=== PATIENT | male | born 1955 | race Caucasian/White ===

== ENCOUNTER 2016-09-03 18:58 | Emergency (ER) | payer OTHER ==
[~2016-09-03] VITALS: Ht 175.3 cm; Wt 88.0 kg
[2016-09-03 19:04] VITALS: TEMP 36.5; Ht 175.3 cm; Wt 88.0 kg
[2016-09-03] MEDS ORDERED: SODIUM CHLORIDE 0.9% 1000ML 1,000 ML IV STA (19:08)
[2016-09-03] MEDS ORDERED: ONDANSETRON 8 MG/54 ML D5W IV STA (19:08)
[2016-09-03] MEDS ORDERED: KETOROLAC TROMETHAMINE 30 MG/ML VIAL IV STA (19:11)
[2016-09-03] MEDS: HYDROmorphone INJ 1 MG/ML SYR IV PRN ×2 (19:17→19:33)
[2016-09-03 19:30] LABS: BASO % 0.2 %; BASO ABS # 0.03 K/uL (0-0.2); COMPLETE YES; EOS % 0.8 %; HEMATOCRIT 42.3 % (42-52); IG% 0.3 %; LYMPH ABS # 1.98 K/uL (1.2-3.4); MEAN CELL VOLUME 91.4 fL (80-100); MEAN CORPUSCULAR HEMOGLOBIN 32.4 pg (25-34); MEAN CORPUSCULAR HGB CONC 35.5 g/dl (32-36); MEAN PLATELET VOLUME 10.8 fL (7.4-10.4); MONO % 8.9 %; NEUT % 74.8 %; PLATELET COUNT 251 K/uL (130-400); RED BLOOD COUNT 4.63 M/uL (4.7-6.1)
[2016-09-03 19:46] LABS: ALT/SGPT 32 U/L (12-78); AST/SGOT 19 U/L (15-37); BLOOD UREA NITROGEN 22 mg/dl (7-18); BUN/CREATININE RATIO 16.9 (10-20); CALCIUM 9.2 mg/dl (8.5-10.1); CARBON DIOXIDE 25 mmol/L (21-32); CHLORIDE 106 mmol/L (98-107); GLUCOSE 145 mg/dl (70-99); POTASSIUM 4.1 mmol/L (3.5-5.1); SODIUM 140 mmol/L (136-145)
[2016-09-03 19:49] LABS: ALKALINE PHOSPHATASE 48 U/L (45-117)
[2016-09-03 20:11] VITALS: O2SAT 99
--- NOTE | 2016-09-03 20:13 | DIAGNOSTIC IMAGING REPORT ---
CT OF THE ABDOMEN AND PELVIS WITHOUT CONTRAST, STONE PROTOCOL CLINICAL HISTORY: Flank pain and. Hematuria. COMPARISON STUDY: None. TECHNIQUE: Helical axial images of the abdomen and pelvis were obtained without IV or oral contrast according to renal stone protocol. FINDINGS: A 3 mm calculus projects over the right posterior aspect of the bladder. This is likely at the ureterovesical junction. There is mild right hydroureteronephrosis with moderate periureteral infiltration/fluid. No additional urinary calculi are identified. There are gallstones within the gallbladder. A small hiatal hernia is present. Unenhanced images of the liver, spleen, adrenal glands and pancreas are normal. There is a diverticulum of the third portion of the duodenum. There is no evidence for a bowel obstruction. The appendix is normal. There is a fat-containing umbilical hernia. No suspicious osseous lesions are present. There is no lymphadenopathy. IMPRESSION: 1. 3 mm calculus at the right ureterovesical junction with mild right hydroureteronephrosis and moderate right periureteral infiltration/fluid. 2. Cholelithiasis. 3. Small hiatal hernia. Electronically signed by: Clarence Juan M.D. 09/03/2016 8:11 PM Dictated Date/Time: 09/03/2016 8:06 PM
[2016-09-03 21:03] LABS: URINE APPEARANCE CLEAR (CLEAR); URINE BILIRUBIN NEG (NEG); URINE COLOR YELLOW; URINE NITRITE NEG (NEG); URINE PH 7.5 (4.5-7.5); URINE SPECIFIC GRAVITY 1.016 (1.000-1.030); UROBILINOGEN NEG (NEG)
[2016-09-03 21:12] LABS: MANUAL MICROSCOPIC REQUIRED? NO; REVIEW REQ? NO
[2016-09-03] MEDS ORDERED: ONDA4TAB10 SL (21:43)
[2016-09-03] MEDS ORDERED: OXYC1TAB3 PO (21:43)
[2016-09-03] MEDS ORDERED: ONDANSETRON HOME PACK 4MG OD TAB PO ONE (21:45)
[2016-09-03] MEDS ORDERED: OXYCODONE IR HOME PACK PO ONE (21:45)
[2016-09-03 22:04] VITALS: BP 158/78; PULSE 82; O2SAT 97
--- NOTE | 2016-09-04 01:34 | EMERGENCY ROOM VISIT NOTE ---
History Report prepared by Al: Terrence Vicente Under the Supervision of: Dr. Hubert Claudio M.D. First contact with patient: 19:07 Chief Complaint: FLANK PAIN Stated Complaint: BACK/SIDE/ABD PAIN History of Present Illness The patient is a 61 year old male who presents to the Emergency Room with complaints of severe and constant pain in the right flank that onset suddenly at 1700, two hours prior to arrival. He describes the pain as "sharp." The patient states that his pain is radiating into his right lower abdominal quadrant and right groin. The patient denies LOC, headache, fevers, chills, diaphoresis, visual changes, neck pain, chest pain, breathing difficulties, melena, hematochezia, numbness, weakness, lymphadenopathy, rash, or other complaints. Source of History: patient Onset: 2 hours [employer] Position: other (right flank) Symptom Intensity: severe Quality: sharp Timing: constant Associated Symptoms: + abdominal pain, + vomiting, No fevers Review of Systems See HPI for pertinent positives and negatives. A total of ten systems were reviewed and were otherwise negative. Past Medical & Surgical Surgical Problems: (1) H/O vasectomy Family History No pertinent history secondary to case. Social History Smoking Status: Never Smoker Drug Use: none Marital Status: Housing Status: lives with significant other Current/Historical Medications Scheduled Ondasetron Odt (Zofran Odt), 4 MG SL Q6H Scheduled PRN Oxycodone Ir (Roxicodone Ir), 1-2 TAB PO Q4H PRN for Pain Allergies Coded Allergies: BEE STING (Verified Allergy, Severe, hives, 09/03/16) Penicillins (Verified Allergy, Intermediate, hives, 09/03/16) Physical Exam Vital Signs Date Time Temp Pulse Resp B/P Pulse Ox O2 Delivery O2 Flow Rate FiO2 09/03/16 22:04 82 18 158/78 97 09/03/16 20:11 99 Nasal Cannula 2.0 09/03/16 20:10 83 Room Air 2.0 Nasal Cannula 09/03/16 19:51 91 18 179/97 95 Room Air 09/03/16 19:04 36.5 81 21 156/93 100 Room Air Physical Exam GENERAL: Awake, alert, uncomfortable appearing, in obvious stress, actively vomiting. HENT: Normocephalic, atraumatic. Oropharynx unremarkable. EYES: Normal conjunctiva. Sclera non-icteric. NECK: Supple. No nuchal rigidity. FROM. No JVD. RESPIRATORY: Clear to auscultation. CARDIAC: Regular rate, normal rhythm. Extremities warm and well perfused. Pulses equal. ABDOMEN: Soft, non-distended. RLQ abdominal tenderness to palpation. No rebound or guarding. No masses. RECTAL: Deferred. MUSCULOSKELETAL: Chest examination reveals no tenderness. The back is symmetrical on inspection without obvious abnormality. There is right CVA tenderness to palpation. No joint edema. LOWER EXTREMITIES: Calves are equal size bilaterally and non-tender. No edema. No discoloration. NEURO: Normal sensorium. No sensory or motor deficits noted. SKIN: No rash or jaundice noted. Medical Decision & Procedures ER Provider Diagnostic Interpretation: X ray results as stated below per my interpretation and radiologist interpretation. Other radiology results as stated below per my review and radiologist interpretation CT OF THE ABDOMEN AND PELVIS WITHOUT CONTRAST, STONE PROTOCOL CLINICAL HISTORY: Flank pain and. Hematuria. COMPARISON STUDY: None. TECHNIQUE: Helical axial images of the abdomen and pelvis were obtained without IV or oral contrast according to renal stone protocol. FINDINGS: A 3 mm calculus projects over the right posterior aspect of the bladder. This is likely at the ureterovesical junction. There is mild right hydroureteronephrosis with moderate periureteral infiltration/fluid. No additional urinary calculi are identified. There are gallstones within the gallbladder. A small hiatal hernia is present. Unenhanced images of the liver, spleen, adrenal glands and pancreas are normal. There is a diverticulum of the third portion of the duodenum. There is no evidence for a bowel obstruction. The appendix is normal. There is a fat-containing umbilical hernia. No suspicious osseous lesions are present. There is no lymphadenopathy. IMPRESSION: 1. 3 mm calculus at the right ureterovesical junction with mild right hydroureteronephrosis and moderate right periureteral infiltration/fluid. 2. Cholelithiasis. 3. Small hiatal hernia. Electronically signed by: Clarence Juan M.D. 09/03/2016 8:11 PM Dictated Date/Time: 09/03/2016 8:06 PM Laboratory Results 09/03/16 19:19 Red Blood Count 4.63, Mean Corpuscular Volume 91.4, Mean Corpuscular Hemoglobin 32.4, Mean Corpuscular Hemoglobin Concent 35.5, Mean Platelet Volume 10.8, Neutrophils (%) (Auto) 74.8, Lymphocytes (%) (Auto) 15.0, Monocytes (%) (Auto) 8.9, Eosinophils (%) (Auto) 0.8, Basophils (%) (Auto) 0.2, Neutrophils # (Auto) 9.86, Lymphocytes # (Auto) 1.98, Monocytes # (Auto) 1.18, Eosinophils # (Auto) 0.11, Basophils # (Auto) 0.03 09/03/16 19:19 Test 09/03/16 19:19 09/03/16 20:50 White Blood Count 13.20 K/uL (4.8-10.8) Red Blood Count 4.63 M/uL (4.7-6.1) Hemoglobin 15.0 g/dL (14.0-18.0) Hematocrit 42.3 % (42-52) Mean Corpuscular Volume 91.4 fL (80-100) Mean Corpuscular Hemoglobin 32.4 pg (25-34) Mean Corpuscular Hemoglobin Concent 35.5 g/dl (32-36) Platelet Count 251 K/uL (130-400) Mean Platelet Volume 10.8 fL (7.4-10.4) Neutrophils (%) (Auto) 74.8 % Lymphocytes (%) (Auto) 15.0 % Monocytes (%) (Auto) 8.9 % Eosinophils (%) (Auto) 0.8 % Basophils (%) (Auto) 0.2 % Neutrophils # (Auto) 9.86 K/uL (1.4-6.5) Lymphocytes # (Auto) 1.98 K/uL (1.2-3.4) Monocytes # (Auto) 1.18 K/uL (0.11-0.59) Eosinophils # (Auto) 0.11 K/uL (0-0.5) Basophils # (Auto) 0.03 K/uL (0-0.2) RDW Standard Deviation 42.9 fL (36.4-46.3) RDW Coefficient of Variation 12.8 % (11.5-14.5) Immature Granulocyte % (Auto) 0.3 % Immature Granulocyte # (Auto) 0.04 K/uL (0.00-0.02) Anion Gap 9.0 mmol/L (3-11) Est Creatinine Clear Calc Drug Dose 64.7 ml/min Estimated GFR () 67.8 Estimated GFR (Non- 58.5 BUN/Creatinine Ratio 16.9 (10-20) Calcium Level 9.2 mg/dl (8.5-10.1) Total Bilirubin 0.3 mg/dl (0.2-1) Direct Bilirubin < 0.1 mg/dl (0-0.2) Aspartate Amino Transf (AST/SGOT) 19 U/L (15-37) Alanine Aminotransferase (ALT/SGPT) 32 U/L (12-78) Alkaline Phosphatase 48 U/L (45-117) Total Protein 7.9 gm/dl (6.4-8.2) Albumin 3.9 gm/dl (3.4-5.0) Lipase 135 U/L (73-393) Urine Color YELLOW Urine Appearance CLEAR (CLEAR) Urine pH 7.5 (4.5-7.5) Urine Specific [place] 1.016 (1.000-1.030) Urine Protein NEG (NEG) Urine Glucose (UA) NEG (NEG) Urine Ketones 1+ (NEG) Urine Occult Blood NEG (NEG) Urine Nitrite NEG (NEG) Urine Bilirubin NEG (NEG) Urine Urobilinogen NEG (NEG) Urine Leukocyte Esterase NEG (NEG) Laboratory results reviewed by me Medications Administered Medications (Trade) Dose Ordered Sig/Ninfa Route Start Time Stop Time Status Last Admin Dose Admin Ondansetron HCl 8 mg 8 mg NOW STAT IV 09/03/16 19:08 09/03/16 19:09 DC 09/03/16 19:16 8 MG Sodium Chloride (Nss 1000ml) 1,000 ml @ 999 mls/hr Q1H1M STAT IV 09/03/16 19:08 09/03/16 20:08 DC 09/03/16 19:17 999 MLS/HR Ketorolac Tromethamine (Toradol Inj) 10 mg NOW STAT IV 09/03/16 19:11 09/03/16 19:12 DC 09/03/16 19:17 10 MG Hydromorphone HCl (Dilaudid Inj) 1 mg Q15M PRN IV 09/03/16 19:15 09/03/16 22:16 DC 09/03/16 19:33 1 MG Ondansetron HCl (ZOFRAN ODT 4MG Home Pack) 1 homepack UD ONCE PO 09/03/16 21:45 09/03/16 21:46 DC 09/03/16 22:02 1 HOMEPACK Oxycodone HCl (Roxicodone Immediate Rel 5MG Home Pack) 1 homepack UD ONCE PO 09/03/16 21:45 09/03/16 21:46 DC 09/03/16 22:02 1 HOMEPACK ED Course 1907: Ordered Sodium Chloride 1000 mL @ 999 mL/hr IV, Zofran HCl 8 mg IV. 1909: The patient was evaluated in room B3B. A complete history and physical exam was performed. 1910: Ordered Toradol 10 mg IV. 1914: Ordered Dilaudid 1 mg IV. 1936: I checked on the patient at this time, he is doing well. 1950: The patient states that the pain medication is improving his condition at this time. 2038: The patient is looking and feeling better at this time. 2144: Ordered Oxycodone HCl 1 homepack PO, Zofran 1 homepack PO. 2146: I reevaluated the patient. Discussed results and discharge instructions: he verbalized understanding and agreement. The patient is ready for discharge. Medical Decision Prior records/ancillary studies reviewed. Triage Nursing notes reviewed and agree them. Additional history obtained from the family. The patient's history was concerning for flank and abdominal pain. Differential diagnosis: Etiologies such as renal colic, appendicitis, diverticulitis, mesenteric ischemia, aortic pathology, infections, inflammatory bowel disease, PUD, biliary pathology, UTI, as well as others were entertained. Physical examination findings: As above. ER treatment provided: IV Zofran IV fluids IV Toradol IV Dilaudid 2 On reassessment the patient felt much better. Diagnostic interpretation by me: The labs revealed a slight leukocytosis which I suspect is from his stress and vomiting.Urinalysis revealed no sign of UTI. Chemistry panel unremarkable. Imaging studies: CT of the abdomen and pelvis as above. It appears that the patient has isolated renal colic from a right sided stone. He is doing very well at this time. He should pass this stone. Pain management was discussed. Close follow-up was outlined. If he worsens in any way he will come back to the Emergency Room for reevaluation. By the evaluation outlined above emergent etiologies such as appendicitis, diverticulitis, mesenteric ischemia, aortic pathology, infections, inflammatory bowel disease, PUD, biliary pathology, UTI, as well as others were deemed relatively unlikely. The patient and were informed about the findings as listed above. All questions were answered and they were pleased with the treatment. Return instructions were outlined and the patient was discharged in stable condition. Outpatient prescription management: Oxy IR 5mg 1-2 po Q4 hrs prn Zofran. Referral: The pt was referred to [facility] for follow up care regarding their stone. The chart was completed utilizing [employer] Speech voice recognition software. Grammatical errors, random word insertions, pronoun errors, and incomplete sentences are an occasional consequence of this system due to software limitations, ambient noise, and hardware issues. Any formal questions or concerns about the content, text, or information contained within the body of this dictation should be directly addressed to the physician for clarification. Impression Primary Impression: Right ureteral stone Scribe Attestation The scribe's documentation has been prepared under my direction and personally reviewed by me in its entirety. I confirm that the note above accurately reflects all work, treatment, procedures, and medical decision making performed by me. Departure Information Dispostion Home / Self-Care Prescriptions Ondasetron Odt (ZOFRAN ODT) 4 Mg Tab 4 MG SL Q6H for Nausea, #6 TAB Prov: Hubert Claudio MD 09/03/16 Oxycodone Ir (Roxicodone Ir) 5 Mg Tab 1-2 TAB PO Q4H Y for Pain, #15 TAB Prov: Hubert Claudio MD 09/03/16 Referrals Peter Shaffer DO (PCP) Forms HOME CARE DOCUMENTATION FORM, IMPORTANT VISIT INFORMATION Patient Instructions My [facility] Additional Instructions KIDNEY STONE INSTRUCTIONS: Oxycodone Immediate Release (OxyIR) 5mg: Take 1-2 pills every four hours for pain. Avoid alcohol, operating machinery or dangerous equipment, working on ladders or roofs, DRIVING, or situations where being under the influence may be dangerous. It is recommended to use an [id number] stool softener such as Colace, 100mg twice daily while taking this medication to avoid constipation. Zofran 4 mg oral dissolving tablets: take one tablet and allow it to melt in your mouth every 4 hours as needed for nausea. Ibuprofen(Motrin, Advil) may be used for fever or pain. Use 600mg every six hours as needed. Take with food. Avoid using more than 2400mg in a 24 hour period. Do not use 2400mg per day for more than three consecutive days without physician direction. Prolonged inappropriate use can lead to stomach upset or ulcers. This medication can be taken if you need to drive, work, or perform activities which may be dangerous when taking narcotic pain medication. (AND/OR) Acetaminophen(Tylenol) may be used for fever or pain. Use 1000mg every six hours as needed. Avoid using more than 4000mg in a 24 hour period. This medication can be taken if you need to drive, work, or perform activities which may be dangerous when taking narcotic pain medication. Strain your urine and collect all the stones or debris for the urologists. Rest and avoid strenuous activity until your stone passes and symptoms resolve. Drink plenty of fluids. Return to the ER for worsening abdominal or back pain, vomiting, fevers, passing out, or as needed. Follow up with [facility] tomorrow, [phone], to arrange a visit.
== END 2016-09-03 22:05 | disposition home or self-care (01) ==
LOC: C.EDB 18:59
DX: N20.1 Calculus of ureter (principal); K80.20 Calculus of gallbladder without cholecystitis without obstruction; K44.9 Diaphragmatic hernia without obstruction or gangrene

== ENCOUNTER 2022-05-03 12:53 | Observation (INO) ==
--- NOTE | 2022-05-03 13:03 | Emergency Department Note ---
Impression & Plan Atrial fibrillation with rapid ventricular response, Palpitations, Elevated troponin ED Provider Note NAME: YADIRA ELENA AGE: 66 SEX: M : 1955 ARRIVES VIA: Ambulance INFORMANT: Patient ED PROVIDER(S): Gopi Hoyt DO CHIEF COMPLAINT: increased heart rate HPI: Patient is a 66-year-old male who presents to the ER for an elevated heart rate. He was seen at his PCPs office and referred in as his heart rate was in the 160s. He notes he does not feel his heart racing. He has felt short of breath for the past week. He has had a mild cough since then. Denies any belly pain, nausea, vomiting, or diarrhea. No swelling in the legs. No recent trips, travel, coughing up blood, history of blood clots, history of clotting disorders, history of cancer. He does use tobacco. ROS: See above HPI for pertinent positives & negatives. A total of 10 systems reviewed and were otherwise negative. PAST MEDICAL HISTORY:See Below PAST SURGICAL HISTORY:See Below FAMILY HISTORY:See Below SOCIAL HISTORY:See Below HOME MEDICATIONS:See Below ALLERGIES:See Below VITALS:See Below PHYSICAL EXAMINATION: GENERAL: Sitting up in bed, alert, well appearing, well nourished, no distress, non-toxic EYE EXAM: normal conjunctiva. OROPHARYNX: no exudate, no erythema, lips, buccal mucosa, and tongue normal and mucous membranes are moist NECK: supple, no nuchal rigidity, no adenopathy, non-tender LUNGS: Clear to auscultation. Normal chest wall mechanics HEART: Tachycardic, S1 normal and S2 normal ABDOMEN: abdomen soft, non-tender, normo-active bowel sounds, no masses, no rebound or guarding. UPPER EXTREMITIES: upper extremities are grossly normal. LOWER EXTREMITIES: No pitting edema. Calves are equal bilateral NEURO EXAM: Normal sensorium, cranial nerves II-XII grossly intact, normal speech, no gross weakness of arms, no gross weakness of legs. MEDICAL DECISION MAKING: Patient is a 66-year-old male who presents ER for the boasting complaint. IV was established blood work was obtained. Labs show no significant leukocytosis or anemia. BMP along with LFTs bilirubin was unremarkable. Troponin was elevated at 35. I do favor this rate related with heart rate going about 160. Lipase was normal. Influenza COVID and RSV were negative. EKG was difficult to interpret but appears to be consistent with an atrial flutter. Patient was given IV Lopressor x3 and heart rate trended down to the 1 teens. About 2 hours later his heart rate went back up and consequently was given additional 3 doses of 5 mg of Lopressor. Heart rate trended back down. He was admitted at this time to the hospitalist for further evaluation. Triage Nursing notes reviewed. Limited review of prior medical records performed Vital Signs: reviewed and remarkable for tachy Differential diagnosis: Cardiac ischemia, aortic dissection, pulmonary embolism, pneumothorax, pneumonia, pericarditis, myocarditis, esophageal rupture, GERD, cholecystitis, pancreatitis, musculoskeletal, as well as other pathologies. ER treatment provided: See below Diagnostics interpreted by me: ECG: A. Flutter rate 159 Left axis T wave inversion in the high lateral leads ST wave changes in the inferior leads QTC 514 Cardiac Monitoring: An order was placed for continuous cardiac monitoring. The monitor shows a rate of 159 with Aflutter rhythm. Laboratory studies: As stated above and show below. Imaging studies: See below Consultation(s): Portable AP upright 1 view of the chest shows no focal infiltrate or pneumothorax Procedures: none Critical Care: I have personally spent 75 minutes of critical care time in the direct management of this patient. This includes bedside care, interpretation of diagnostic studies, and testing, discussion with consultants, patient, and [employer], and other required patient management activities. This 75 minutes is in excess of all separately billable procedures. Past Med/Surg History Social History Smoking Status: Current every day smoker Tobacco Type: Smokeless Tobacco (Dip or Chew) Feels Safe at Home: Yes Allergies Allergies Allergy/AdvReac Type Severity Reaction Status Date / Time bee venom protein (honey bee) Allergy Severe hives Verified 05/03/22 15:24 Penicillins Allergy Intermediate hives Verified 05/03/22 15:24 Home Meds Home Medications Medication Instructions Recorded Confirmed ascorbic acid (vitamin C) 500 mg 500 mg PO DAILY 05/03/22 05/03/22 chewable tablet (Vitamin C) cholecalciferol (vitamin D3) 25 25 mcg PO DAILY 05/03/22 05/03/22 mcg (1,000 unit) chewable tablet (Vitamin D3) diclofenac sodium 75 mg 75 mg PO .DAILY WITH LUNCH 05/03/22 05/03/22 tablet,delayed release magnesium 250 mg tablet 250 mg PO DAILY 05/03/22 05/03/22 [id number]-sxcqo acid-vit 1 tab PO DAILY 05/03/22 05/03/22 K-lycop 400 mcg-20 mcg-370 mcg tablet (Men's 50 Plus Daily Formula) omega 9-zna-ulr-fish oil 1,000 mg 1 cap PO DAILY 05/03/22 05/03/22 (120 mg-180 mg) capsule (Fish Oil) zinc acetate 50 mg (zinc) capsule 50 mg PO DAILY 05/03/22 05/03/22 Results & Data (ED) Vital Signs Vital Signs - 24 hr 05/03/22 13:06 05/03/22 13:06 05/03/22 13:06 Temperature 36.9 C Temperature Source Oral Pulse Rate 155 H Pulse Rate [Apical] 157 H Pulse Rhythm Regular Pulse Rhythm [Apical] Irregular Pulse Strength Normal Pulse Strength [Apical] Normal Respiratory Rate 18 19 Respiratory Effort / Characteristics Non-Labored Non-Labored Respiratory Depth Normal Normal Respiratory Pattern Regular Regular Blood Pressure 162/135 H Blood Pressure [Left Arm] Blood Pressure Mean 144 Blood Pressure Mean [Left Arm] Blood Pressure Position Lying Pulse Oximetry 97 99 Oxygen Delivery Method Room Air Room Air Room Air Sepsis Recent Fever Within 48 Hours No Sepsis New/Unexplained Change in Mental Status No Sepsis Action Taken by Nursing No Action Required 05/03/22 13:06 05/03/22 13:15 05/03/22 13:30 Temperature Temperature Source Pulse Rate 157 H 157 H 155 H Pulse Rate [Apical] Pulse Rhythm Irregular Pulse Rhythm [Apical] Pulse Strength Pulse Strength [Apical] Respiratory Rate 19 Respiratory Effort / Characteristics Respiratory Depth Respiratory Pattern Blood Pressure 163/106 H 135/98 Blood Pressure [Left Arm] Blood Pressure Mean Blood Pressure Mean [Left Arm] Blood Pressure Position Pulse Oximetry Oxygen Delivery Method Room Air Sepsis Recent Fever Within 48 Hours Sepsis New/Unexplained Change in Mental Status Sepsis Action Taken by Nursing 05/03/22 13:35 05/03/22 15:05 05/03/22 15:11 Temperature Temperature Source Pulse Rate 136 H 128 H Pulse Rate [Apical] 132 H Pulse Rhythm Pulse Rhythm [Apical] Pulse Strength Pulse Strength [Apical] Respiratory Rate 18 Respiratory Effort / Characteristics Respiratory Depth Respiratory Pattern Blood Pressure 121/102 H 140/98 Blood Pressure [Left Arm] 133/89 Blood Pressure Mean Blood Pressure Mean [Left Arm] 103 Blood Pressure Position Pulse Oximetry 97 Oxygen Delivery Method Room Air Sepsis Recent Fever Within 48 Hours Sepsis New/Unexplained Change in Mental Status Sepsis Action Taken by Nursing Laboratory Data Result diagrams: 05/03/22 13:10 05/03/22 13:10 Lab Results 05/03/22 05/03/22 05/03/22 Range/Units 13:10 13:10 13:10 WBC 8.89 (4.8-10.8) K/ul RBC 4.74 (4.63-6.08) M/uL Hgb 15.7 (14.0-18.0) g/dl Hct 45.6 (40.1-51.0) % MCV 96.2 (80.0-100.0) fL MCH 33.1 (25.0-34.0) pg MCHC 34.4 (32.0-36.0) g/dL RDW Std Deviation 42.4 (36.4-46.3) fL RDW Coeff of Rahel 12.0 (11.5-14.5) % Plt Count 233 (130-400) K/uL MPV 11.0 (9.4-12.4) fL Immature Gran % (Auto) 0.3 % Neut % (Auto) 73.2 % Lymph % (Auto) 12.3 % Tompkins % (Auto) 12.7 % Eos % (Auto) 0.9 % Baso % (Auto) 0.6 % Neut # (Auto) 6.51 H (1.4-6.5) K/uL Lymph # (Auto) 1.09 L (1.2-3.4) K/uL Tompkins # (Auto) 1.13 H (0.24-0.82) K/uL Eos # (Auto) 0.08 (0-0.50) K/uL Baso # (Auto) 0.05 (0-0.2) K/uL Immature Gran # (Auto) 0.03 H (0.00-0.02) K/uL Sodium 138 (136-145) mmol/L Potassium 4.2 (3.5-5.1) mmol/L Chloride 105 (98-107) mmol/L Carbon Dioxide 26 (21-32) mmol/L Anion Gap 7 (3-11) BUN 21 (6-23) mg/dl Creatinine 0.90 (0.6-1.4) mg/dl Est Cr Clr Drug Dosing 90.6 ml/min Est GFR ( Amer) 102.1 ml/min Est GFR (Non-Af Amer) 88.1 ml/min BUN/Creatinine Ratio 23.3 H (10-20) Glucose 114 H (70-99(Fasting)) mg/dl Calcium 9.5 (8.5-10.1) mg/dl Total Bilirubin 0.6 (0.2-1.0) mg/dl AST 19 (13-39) U/L ALT 21 (7-52) U/L Alkaline Phosphatase 44 (34-104) U/L Troponin I High Sens 35.8 H (0-20) pg/ml Total Protein 7.4 (6.0-8.3) gm/dl Albumin 4.0 (3.4-5.0) gm/dl Globulin 3.4 (2.5-4.0) gm/dl Albumin/Globulin Ratio 1.2 (0.9-2) Lipase 15 (11-82) U/L SARS-CoV-2 (PCR) (Negative) Influenza Type A (PCR) (Neg) Influenza Type B (PCR) (Neg) RSV (RT-PCR) (Neg) 05/03/22 Range/Units 13:21 WBC (4.8-10.8) K/ul RBC (4.63-6.08) M/uL Hgb (14.0-18.0) g/dl Hct (40.1-51.0) % MCV (80.0-100.0) fL MCH (25.0-34.0) pg MCHC (32.0-36.0) g/dL RDW Std Deviation (36.4-46.3) fL RDW Coeff of Rahel (11.5-14.5) % Plt Count (130-400) K/uL MPV (9.4-12.4) fL Immature Gran % (Auto) % Neut % (Auto) % Lymph % (Auto) % Tompkins % (Auto) % Eos % (Auto) % Baso % (Auto) % Neut # (Auto) (1.4-6.5) K/uL Lymph # (Auto) (1.2-3.4) K/uL Tompkins # (Auto) (0.24-0.82) K/uL Eos # (Auto) (0-0.50) K/uL Baso # (Auto) (0-0.2) K/uL Immature Gran # (Auto) (0.00-0.02) K/uL Sodium (136-145) mmol/L Potassium (3.5-5.1) mmol/L Chloride (98-107) mmol/L Carbon Dioxide (21-32) mmol/L Anion Gap (3-11) BUN (6-23) mg/dl Creatinine (0.6-1.4) mg/dl Est Cr Clr Drug Dosing ml/min Est GFR ( Amer) ml/min Est GFR (Non-Af Amer) ml/min BUN/Creatinine Ratio (10-20) Glucose (70-99(Fasting)) mg/dl Calcium (8.5-10.1) mg/dl Total Bilirubin (0.2-1.0) mg/dl AST (13-39) U/L ALT (7-52) U/L Alkaline Phosphatase (34-104) U/L Troponin I High Sens (0-20) pg/ml Total Protein (6.0-8.3) gm/dl Albumin (3.4-5.0) gm/dl Globulin (2.5-4.0) gm/dl Albumin/Globulin Ratio (0.9-2) Lipase (11-82) U/L SARS-CoV-2 (PCR) NEGATIVE (Negative) Influenza Type A (PCR) Negative (Neg) Influenza Type B (PCR) Negative (Neg) RSV (RT-PCR) Negative (Neg) Administered Medications Metoprolol Tartrate (Metoprolol Tartrate 1 Mg/Ml Vial) 5 mg IV Q5M PRN PRN Reason: Tachycardia Stop: 06/02/22 13:02 Last Admin: 05/03/22 15:05 Dose: 5 mg Documented By: Admin: 05/03/22 13:35 Dose: 5 mg Documented By: Admin: 05/03/22 13:30 Dose: 5 mg Documented By: Admin: 05/03/22 13:15 Dose: 5 mg Documented By: XAVI Discontinued Medications Diltiazem HCl (Diltiazem Hcl 5 Mg/Ml 5 Ml Vial) 5 mg IV NOW STA Stop: 05/03/22 15:53 Last Admin: 05/03/22 15:56 Dose: 5 mg Documented By: MARINA Co-signed By: HS Imaging Data Radiologist's Impression: Chest X-Ray 05/03/22 13:01 XR chest 1V portable HISTORY: 66 years-old Male Chest Pain . Acute chest pain COMPARISON: CT abdomen and pelvis 09/03/2016 TECHNIQUE: AP view of the chest FINDINGS: Cardiac silhouette is enlarged. No pneumothorax, pleural effusion, airspace consolidation or overt pulmonary edema. Bones of the chest appear grossly intact. Spondylitic spurring of the spine. IMPRESSION: No acute process. ACT 112: Negative or not required by law. The above report was generated using voice recognition software. It may contain grammatical, syntax or spelling errors. Electronically signed by: Maurice Navaror M.D. 05/03/2022 1:26 PM Discharge Plan Visit Data Chief Complaint: Tachycardia Stated Complaint: TACHYCARDIA ED Provider: Gopi Hoyt Discharge Problem: Atrial fibrillation with rapid ventricular response, Palpitations, Elevated troponin Forms Stand Alone Forms: My [facility] [place] [employer] [place] Prescriptions Prescriptions: No Action zinc acetate 50 mg (zinc) Capsule 50 mg PO DAILY ascorbic acid (vitamin C) [Vitamin C] 500 mg Tablet,Chewable 500 mg PO DAILY diclofenac sodium 75 mg tablet,delayed release (DR/EC) 75 mg PO .DAILY WITH LUNCH magnesium 250 mg Tablet 250 mg PO DAILY cholecalciferol (vitamin D3) [Vitamin D3] 25 mcg (1,000 unit) Tablet,Chewable 25 mcg PO DAILY omega 0-sgp-und-fish oil [Fish Oil] 1,000 mg (120 mg-180 mg) Capsule 1 cap PO DAILY Men's 50 Plus Daily Formula 400-20-370 mcg Tablet 1 tab PO DAILY Referrals Referrals: Peter Shaffer [Primary Care Provider] -
[2022-05-03] MEDS: METOPROLOL TARTRATE 1 MG/ML VIAL IV PRN ×4 (13:15→15:05)
[2022-05-03 13:23] LABS: Basophils # (auto) 0.05 K/uL (0-0.2); Basophils % (auto) 0.6 %; Eosinophils # (auto) 0.08 K/uL (0-0.50); Eosinophils % (auto) 0.9 %; Hematocrit (blood only) 45.6 % (40.1-51.0); Hemoglobin 15.7 g/dl (14.0-18.0); Immature Granulocytes # (auto) 0.03 K/uL (0.00-0.02); Immature Granulocytes % (auto) 0.3 %; Lymphocytes # (auto) 1.09 K/uL (1.2-3.4); Lymphocytes % (auto) 12.3 %; Mean Corpuscular Hemoglobin 33.1 pg (25.0-34.0); Mean Corpuscular Hgb Conc 34.4 g/dL (32.0-36.0); Mean Corpuscular Volume 96.2 fL (80.0-100.0); Monocytes # (auto) 1.13 K/uL (0.24-0.82); Monocytes % (auto) 12.7 %; Neutrophils # (auto) 6.51 K/uL (1.4-6.5); Neutrophils % (auto) 73.2 %; Platelet Count 233 K/uL (130-400); RDW Standard Deviation 42.4 fL (36.4-46.3); Red Blood Count 4.74 M/uL (4.63-6.08); White Blood Count 8.89 K/ul (4.8-10.8)
--- NOTE | 2022-05-03 13:28 | XRay Report ---
XR chest 1V portable HISTORY: 66 years-old Male Chest Pain . Acute chest pain COMPARISON: CT abdomen and pelvis 09/03/2016 TECHNIQUE: AP view of the chest FINDINGS: Cardiac silhouette is enlarged. No pneumothorax, pleural effusion, airspace consolidation or overt pu lmonary edema. Bones of the chest appear grossly intact. Spondylitic spurring of the spine. IMPRESSION: No acute process. ACT 112: Negative or not required by law. The above report was generated using voice recognition software. It may contain grammatical, syntax o r spelling errors. Electronically signed by: Maurice Navarro M.D. 05/03/2022 1:26 PM
[2022-05-03 13:47] LABS: Troponin I High Sensitivity 35.8 pg/ml (0-20)
[2022-05-03 13:54] LABS: Albumin Globulin Ratio 1.2 (0.9-2); BUN Creatinine Ratio 23.3 (10-20); Bilirubin,Total 0.6 mg/dl (0.2-1.0); Calcium 9.5 mg/dl (8.5-10.1); Creatinine Clr Calc Pharmacy 90.6 ml/min; Est GFR (African American) 102.1 ml/min; Est GFR (Non-African American) 88.1 ml/min; Globulin 3.4 gm/dl (2.5-4.0); Total Protein 7.4 gm/dl (6.0-8.3)
[2022-05-03 14:13] LABS: Potassium 4.2 mmol/L (3.5-5.1)
--- NOTE | 2022-05-03 14:14 | Electrocardiogram Report ---
Test Reason : Blood Pressure : / mmHG Vent. Rate : 157 BPM Atrial Rate : 314 BPM P-R Int : 000 ms QRS Dur : 098 ms QT Int : 318 ms P-R-T Axes : 268 -35 110 degrees QTc Int : 514 ms Atrial flutter with 2:1 A-V conduction Left axis deviation Left ventricular hypertrophy with repolarization abnormality Abnormal ECG No previous ECGs available Confirmed by Tylre Mistry ([id number]) on 05/03/2022 2:14:20 PM Referred By: REFERRED SELF Confirmed By:Rich Mistry
[2022-05-03 14:20] LABS: Influenza A virus by PCR Negative (Neg); Influenza B virus by PCR Negative (Neg); RSV by PCR Negative (Neg); SARS CoV2 RNA(COVID-19) Ceph NEGATIVE (Negative)
[2022-05-03] MEDS ORDERED: METOPROLOL TARTRATE 1 MG/ML VIAL IV PRN (14:50)
--- NOTE | 2022-05-03 14:58 | History & Physical Report ---
Date of Service May 03, 2022 Assessment & Plan (1) Atrial flutter: Plan: Six 6-year-old male with a past medical history of chew use, COPD/cigarette use, daily alcohol use who presents with 2-1 atrial flutter. Has had shortness of breath without chest pain for approximately 1 week, gradually worsening. Referred for PCP for tachycardia and found to be a new a flutter Atrial flutter Approximately 1 week of symptoms, no prior history of A. fib/a flutter/arr hythmia Denies history of NM/COPD/recent illness/hypertension/DM Chew use, denies cigarette use 2-1 atrial flutter, new on admission rates in the 150s Received 3X metoprolol IV with rate control to 1 [id number], hemodynamically stable at time of assessment Anticoagulation ordered Cardiology consulted Defer cardioversion unless unstable given unknown duration and potential for stroke ? Donato dysfunction in the setting of chronic alcohol use Daily alcohol use 2 beers 2-3 whiskeys daily, cut back on beer slightly from 5 total per day on hollowing at the recommendation of PCP No recent alcohol free days Will admit on CIWA protocol Patient denies any history of seizures, withdrawal, tremors. Reports he did go without alcohol when he was ill a year or 2 ago, no recent alcohol free days Last drink evening prior to admission DVT prophylaxis: Anticoagulated Disposition: PCU Diet: N.p.o. pending cardiology eval CODE STATUS: Full code (2) Daily consumption of alcohol: History of Present Illness Primary Care Provider: Peter mckeon. hx of etoh use daily for many use. Reilly is seen at the bedside Last started having a 'bad deep cough' with a cough in his central chest and a feeling of flutterin gin his chest Was loading conrete bags in the truck and felt like he strained his chest Last Monday was walking in the back yard, and had to stop due to shortness o breath. Denies any chest pain, no exertion CP, but was SoB with exertion. Daily alcohol use with no free ETOH days in the last year or two at least Denies other medical problems Meds: Has used tramadol for muscle aches fo ra few years. No other medications. Takes 1x tab a day Does have wheezing with cough in the last week. No baseline wheezing. Medical History: Reviewed Medications: Reviewed. PCN --> hives Surgical History: Reviewed Allergies: Reviewed Social History: Chew use x58 1 can per 2 days.No smoked tobacco. Drinks etoh daily. Cut back to one beer a day and 1-2 glass of whiskey in the evening. Cut back last appointment on Halloween after talking to his PCP. Prior 2-3 beers and 2 shots of whikey (5 a day total prior). Code Status: Full Code Allergies Allergy/AdvReac Type Severity Reaction Status Date / Time bee venom protein (honey bee) Allergy Severe hives Verified 09/03/16 19:24 Penicillins Allergy Intermediate hives Verified 09/03/16 19:24 Past Med/Surg History Social History Smoking Status: Current every day smoker Tobacco Type: Smokeless Tobacco (Dip or Chew) Feels Safe at Home: Yes Review of Systems Review of Systems: All systems reviewed & are unremarkable except as noted in HPI & below Physical Exam Physical Exam: General: A&Ox3. NAD. Cooperative. HEENT: Atraumatic, normocephalic. Eom intact, vision/hearing intact. Pulm: CTAB A&P. -wheezes, -rales, -rhonchi. Symmetrical chest rise. No increased work of breathing. No respiratory distress. Cardiac: tachycardic, -mrg. Radial pulses intact and symmetrical. Abdominal: Nontender, nondistended, soft. BS present. Ext: -edema. Warm, dry RUE: 5/5 smoke chaser strength, finger flexion/extension, interosseus LUE: 5/5 smoke chaser strength, finger flexion/extension, interosseus RLE: 5/5 to hip flexionankle dorsiflexion/plantarflexion LLE: 5/5 to hip flexion, ankle dorsiflexion/plantarflexion SENSORY: Normal to touch in upper and lower extremities without deficit or asymmetry Results & Data Results & Data ([facility]) Vital Signs (Past 12 Hours) Vital Signs Temp Pulse Pulse Resp BP Pulse Ox O2 Del Method 05/03/22 13:35 136 H 121/102 H 05/03/22 13:30 155 H 135/98 05/03/22 13:15 157 H 163/106 H 05/03/22 13:06 157 H 19 Room Air 05/03/22 13:06 157 H 19 99 Room Air 05/03/22 13:06 Room Air 05/03/22 13:06 36.9 C 155 H 18 162/135 H 97 Room Air PG Care Time/CCT Total # of Minutes Spent Total Time Spent with Patient: Total time spent is greater than 50% in coordination of care (as documented) at patient's floor/unit and/or counseling patient: Coding Level of Care Code 94038 Initial Inpt Care Lvl 3 Diagnoses Atrial flutter I48.92 Daily consumption of alcohol Z78.9
[2022-05-03] MEDS ORDERED: dilTIAZem HCl 5 MG/ML 5 ML VIAL IV STA (15:52)
[2022-05-03] MEDS ORDERED: LORazepam 1 MG in SYRINGE 0 ML IV PRN (16:58)
[2022-05-03] MEDS ORDERED: Ativan IV Alcohol Withdrawal--Active Protocol IV PRN (16:58)
[2022-05-03] MEDS ORDERED: LORazepam 2 MG in SYRINGE 0 ML IV PRN (16:58)
[2022-05-03] MEDS ORDERED: LORazepam 3 MG in SYRINGE 0 ML IV PRN (16:58)
[2022-05-03] MEDS ORDERED: Heparin IV Adult Wt-Based Standard WITH Bolus Protocol IV SCH (17:15)
[2022-05-03] MEDS ORDERED: MULTI-VITAMIN INFUSION 10 ML, THIAMINE HCL 100 MG, FOLIC ACID 1 MG in SODIUM CHLORIDE 0... IV ONE (17:30)
[2022-05-03] MEDS ORDERED: HEPARIN SOD (PORCINE) 1000 UNIT/ML IV ONE (17:30)
[2022-05-03] MEDS: HEPARIN SODIUM/DEXTROSE 25,000 UNITS/500 ML BAG IV SCH (18:17)
[2022-05-03 19:58] LABS: Partial Thromboplastin Ratio > 5.1
[2022-05-03 20:32] LABS: Partial Thromboplastin Time > 139.0 Seconds (21.0-31.0)
[2022-05-03] MEDS: LACTATED RINGER'S 1,000 ML IV SCH (20:46)
[2022-05-03] MEDS: dilTIAZem HCL 30 MG TAB PO SCH (21:14)
[2022-05-03 21:57] LABS: Partial Thromboplastin Ratio 2.5
[2022-05-03 22:04] LABS: Partial Thromboplastin Time 69.2 Seconds (21.0-31.0)
[2022-05-03 23:33] LABS: Partial Thromboplastin Ratio 1.2; Partial Thromboplastin Time 32.5 Seconds (21.0-31.0)
[2022-05-04] MEDS: LACTATED RINGER'S 1,000 ML IV SCH ×2 (03:51→12:06)
[2022-05-04 05:59] LABS: Basophils # (auto) 0.05 K/uL (0-0.2); Basophils % (auto) 0.8 %; Eosinophils # (auto) 0.25 K/uL (0-0.50); Eosinophils % (auto) 4.1 %; Hemoglobin 13.7 g/dl (14.0-18.0); Immature Granulocytes # (auto) 0.01 K/uL (0.00-0.02); Immature Granulocytes % (auto) 0.2 %; Lymphocytes # (auto) 1.28 K/uL (1.2-3.4); Lymphocytes % (auto) 20.9 %; Mean Corpuscular Hemoglobin 33.2 pg (25.0-34.0); Mean Corpuscular Hgb Conc 34.3 g/dL (32.0-36.0); Mean Corpuscular Volume 96.9 fL (80.0-100.0); Mean Platelet Volume 10.8 fL (9.4-12.4); Monocytes # (auto) 1.15 K/uL (0.24-0.82); Monocytes % (auto) 18.8 %; Neutrophils # (auto) 3.39 K/uL (1.4-6.5); Neutrophils % (auto) 55.2 %; Platelet Count 209 K/uL (130-400); RDW Coefficient of Variation 12.4 % (11.5-14.5); RDW Standard Deviation 44.1 fL (36.4-46.3); Red Blood Count 4.13 M/uL (4.63-6.08); White Blood Count 6.13 K/ul (4.8-10.8)
[2022-05-04 06:41] LABS: BUN Creatinine Ratio 18.8 (10-20); Calcium 8.5 mg/dl (8.5-10.1); Creatinine Clr Calc Pharmacy 101.9 ml/min; Est GFR (African American) 107.1 ml/min; Est GFR (Non-African American) 92.4 ml/min; Magnesium 1.7 mg/dl (1.7-2.4); Potassium 3.8 mmol/L (3.5-5.1)
--- NOTE | 2022-05-04 07:18 | Hospitalist Progress Note ---
Date of Service May 04, 2022 Assessment & Plan (1) Atrial flutter: Plan: Six 6-year-old male with a past medical history of chew use, COPD/cigarette use, daily alcohol use who presents with 2-1 atrial flutter. Has had shortness of breath without chest pain for approximately 1 week, gradually worsening. Referred for PCP for tachycardia and found to be a new a flutter Atrial flutter Approximately 1 week of symptoms, no prior history of A. fib/a flutter/ar rhythmia. ?Donato dysfunction in the setting of chronic alcohol use. Denies history of [place]/COPD/recent illness/hypertension/DM Chew use, denies cigarette use 2-1 atrial flutter, new on admission rates in the 150s Received 3X metoprolol IV with rate control to 1 [id number]. Subsequently given diltiazem x1 IV and put on diltiazem 30mg po tid. Appears to have converted to NSR after IV diltiazem dose. - hs-trops peaked 45 cont. heparin cardiology consulted - ARISTIDES-VASC score: 2; started xarelto - toprol 25mg daily HFrEF -no prior history, denies genetic predisposition -lipids wnl, A1c 5.7 -Echo: EF 30-35%, moderate to severe global hypokineses of left ventricle -cardiology consulted as above -xarelto, toprol as above -will consider ARB or entresto in am after monitoring BPs -may need future cath, however, will hope for LV function improvement with alcohol cessation and atrial flutter control Daily alcohol use 1 beer and 1 whiskey (glass) daily, cut back on beer slightly from 5 total per day on hollowing at the recommendation of PCP No recent alcohol free days [facility] protocol Patient denies any history of seizures, withdrawal, tremors. Reports he did go without alcohol when he was ill a year or 2 ago, no recent alcohol free days. Last drink evening prior to admission. Tobacco abuse -58 years of chewing tobacco use -gave nicotine patch DVT prophylaxis: xarelto Disposition: med tele Diet: heart healthy Code status: full code (2) Daily consumption of alcohol: (3) HFrEF (heart failure with reduced ejection fraction): (4) Tobacco abuse: Admission and Anticipated Discharge Date Admission Date: May 03, 2022 Supervising Physician Co-Signing Physician Notes Attending attestation Pt seen and examined in concert with Dr. Garibay. In agreement with the documented findings as noted in the resident documentation with any exceptions or additions as noted here. Resting comfortably in bed without acute complaint at time of evaluation. VS, nursing notes, imaging and labs reviewed. On examination, S1/S2 nl RRR no MCG. CTAB. Abd NT/ND BS+ve Atrial flutter, asymptomatic - [id number] of 2 - agree w/ Xarelto therapy initiation, will be on betablocaked for cardiomyopathy as below Cardiomyopathy, unknown etiology, demand ischemia - cardiology consult - beta aleks, recommend entresto. Else see resident documentation as noted. Subjective Seen at bedside this morning. Feeling well since coming up to floor from ED. Confirmed last drink was evening of 05/02. States he has one beer and a glass of whiskey daily. Otherwise diet healthy with home cooked meals. Denies chest pain, sob, abd pain, headache, N/V. Review of Systems Review of Systems: All systems reviewed & are unremarkable except as noted in HPI & below Physical Exam Physical Exam: General: AOx3. NAD. Cooperative. HEENT: NCAT. EOMI. Pulm: CTAB. -wheezes, -rales, -rhonchi. Symmetrical chest rise. No increased work of breathing. No respiratory distress. Cardiac: RRR, -mrg. Radial pulses intact and symmetrical. Abdominal: Nontender, nondistended, soft. BS present. Ext: No LE edema. Skin: Warm, dry Results & Data Results & Data ([facility]) Vital Signs (Past 12 Hours) Vital Signs Temp Pulse Pulse Resp BP Pulse Ox O2 Del Method 05/04/22 03:20 37 C 80 18 114/63 95 Room Air 05/04/22 00:05 90 05/03/22 20:00 98 H 05/03/22 23:08 36.8 C 75 18 113/68 96 Room Air 05/03/22 20:00 36.7 C 94 H 16 149/92 H 97 Room Air 05/03/22 21:42 Room Air Laboratory Results 05/04/22 05/04/22 05/04/22 Range/Units 05:41 05:41 05:41 WBC (4.8-10.8) K/ul RBC (4.63-6.08) M/uL Hgb (14.0-18.0) g/dl Hct (40.1-51.0) % MCV (80.0-100.0) fL MCH (25.0-34.0) pg MCHC (32.0-36.0) g/dL RDW Std Deviation (36.4-46.3) fL RDW Coeff of Rahel (11.5-14.5) % Plt Count (130-400) K/uL MPV (9.4-12.4) fL Immature Gran % (Auto) % Neut % (Auto) % Lymph % (Auto) % [place] % (Auto) % Eos % (Auto) % Baso % (Auto) % Neut # (Auto) (1.4-6.5) K/uL Lymph # (Auto) (1.2-3.4) K/uL [place] # (Auto) (0.24-0.82) K/uL Eos # (Auto) (0-0.50) K/uL Baso # (Auto) (0-0.2) K/uL Immature Gran # (Auto) (0.00-0.02) K/uL APTT (21.0-31.0) Seconds PTT Ratio Sodium (136-145) mmol/L Potassium (3.5-5.1) mmol/L Chloride (98-107) mmol/L Carbon Dioxide (21-32) mmol/L Anion Gap (3-11) BUN (6-23) mg/dl Creatinine (0.6-1.4) mg/dl Est Cr Clr Drug Dosing ml/min Est GFR ( Amer) ml/min Est GFR (Non-Af Amer) ml/min BUN/Creatinine Ratio (10-20) Glucose (70-99(Fasting)) mg/dl Estimat Average Glucose 117 mg/dl Hemoglobin A1c 5.7 H (4.5-5.6) % Calcium (8.5-10.1) mg/dl Magnesium (1.7-2.4) mg/dl Troponin I High Sens 44.5 H (0-20) pg/ml Triglycerides 79 (0-150) mg/dl Cholesterol 146 (0-200) mg/dl LDL Cholesterol, Calc 93 mg/dl VLDL Cholesterol, Calc 16 (0-30) mg/dl HDL Cholesterol 37 mg/dl Cholesterol/HDL Ratio 3.9 (0-5) 05/04/22 05/04/22 05/04/22 Range/Units 05:41 05:41 05:41 WBC 6.13 (4.8-10.8) K/ul RBC 4.13 L (4.63-6.08) M/uL Hgb 13.7 L (14.0-18.0) g/dl Hct 40.0 L (40.1-51.0) % MCV 96.9 (80.0-100.0) fL MCH 33.2 (25.0-34.0) pg MCHC 34.3 (32.0-36.0) g/dL RDW Std Deviation 44.1 (36.4-46.3) fL RDW Coeff of Rahel 12.4 (11.5-14.5) % Plt Count 209 (130-400) K/uL MPV 10.8 (9.4-12.4) fL Immature Gran % (Auto) 0.2 % Neut % (Auto) 55.2 % Lymph % (Auto) 20.9 % [place] % (Auto) 18.8 % Eos % (Auto) 4.1 % Baso % (Auto) 0.8 % Neut # (Auto) 3.39 (1.4-6.5) K/uL Lymph # (Auto) 1.28 (1.2-3.4) K/uL [place] # (Auto) 1.15 H (0.24-0.82) K/uL Eos # (Auto) 0.25 (0-0.50) K/uL Baso # (Auto) 0.05 (0-0.2) K/uL Immature Gran # (Auto) 0.01 (0.00-0.02) K/uL APTT 61.4 H* (21.0-31.0) Seconds PTT Ratio 2.2 Sodium 138 (136-145) mmol/L Potassium 3.8 (3.5-5.1) mmol/L Chloride 107 (98-107) mmol/L Carbon Dioxide 25 (21-32) mmol/L Anion Gap 6 (3-11) BUN 15 (6-23) mg/dl Creatinine 0.80 (0.6-1.4) mg/dl Est Cr Clr Drug Dosing 101.9 ml/min Est GFR ( Amer) 107.1 ml/min Est GFR (Non-Af Amer) 92.4 ml/min BUN/Creatinine Ratio 18.8 (10-20) Glucose 106 H (70-99(Fasting)) mg/dl Estimat Average Glucose mg/dl Hemoglobin A1c (4.5-5.6) % Calcium 8.5 (8.5-10.1) mg/dl Magnesium 1.7 (1.7-2.4) mg/dl Troponin I High Sens (0-20) pg/ml Triglycerides (0-150) mg/dl Cholesterol (0-200) mg/dl LDL Cholesterol, Calc mg/dl VLDL Cholesterol, Calc (0-30) mg/dl HDL Cholesterol mg/dl Cholesterol/HDL Ratio (0-5) 05/03/22 05/03/22 05/03/22 Range/Units 23:08 23:08 21:19 WBC (4.8-10.8) K/ul RBC (4.63-6.08) M/uL Hgb (14.0-18.0) g/dl Hct (40.1-51.0) % MCV (80.0-100.0) fL MCH (25.0-34.0) pg MCHC (32.0-36.0) g/dL RDW Std Deviation (36.4-46.3) fL RDW Coeff of Rahel (11.5-14.5) % Plt Count (130-400) K/uL MPV (9.4-12.4) fL Immature Gran % (Auto) % Neut % (Auto) % Lymph % (Auto) % [place] % (Auto) % Eos % (Auto) % Baso % (Auto) % Neut # (Auto) (1.4-6.5) K/uL Lymph # (Auto) (1.2-3.4) K/uL [place] # (Auto) (0.24-0.82) K/uL Eos # (Auto) (0-0.50) K/uL Baso # (Auto) (0-0.2) K/uL Immature Gran # (Auto) (0.00-0.02) K/uL APTT 32.5 H 69.2 H* (21.0-31.0) Seconds PTT Ratio 1.2 2.5 Sodium (136-145) mmol/L Potassium (3.5-5.1) mmol/L Chloride (98-107) mmol/L Carbon Dioxide (21-32) mmol/L Anion Gap (3-11) BUN (6-23) mg/dl Creatinine (0.6-1.4) mg/dl Est Cr Clr Drug Dosing ml/min Est GFR ( Amer) ml/min Est GFR (Non-Af Amer) ml/min BUN/Creatinine Ratio (10-20) Glucose (70-99(Fasting)) mg/dl Estimat Average Glucose mg/dl Hemoglobin A1c (4.5-5.6) % Calcium (8.5-10.1) mg/dl Magnesium (1.7-2.4) mg/dl Troponin I High Sens 48.7 H (0-20) pg/ml Triglycerides (0-150) mg/dl Cholesterol (0-200) mg/dl LDL Cholesterol, Calc mg/dl VLDL Cholesterol, Calc (0-30) mg/dl HDL Cholesterol mg/dl Cholesterol/HDL Ratio (0-5) 05/03/22 05/03/22 Range/Units 18:41 17:12 WBC (4.8-10.8) K/ul RBC (4.63-6.08) M/uL Hgb (14.0-18.0) g/dl Hct (40.1-51.0) % MCV (80.0-100.0) fL MCH (25.0-34.0) pg MCHC (32.0-36.0) g/dL RDW Std Deviation (36.4-46.3) fL RDW Coeff of Rahel (11.5-14.5) % Plt Count (130-400) K/uL MPV (9.4-12.4) fL Immature Gran % (Auto) % Neut % (Auto) % Lymph % (Auto) % [place] % (Auto) % Eos % (Auto) % Baso % (Auto) % Neut # (Auto) (1.4-6.5) K/uL Lymph # (Auto) (1.2-3.4) K/uL [place] # (Auto) (0.24-0.82) K/uL Eos # (Auto) (0-0.50) K/uL Baso # (Auto) (0-0.2) K/uL Immature Gran # (Auto) (0.00-0.02) K/uL APTT > 139.0 H* (21.0-31.0) Seconds PTT Ratio > 5.1 Sodium (136-145) mmol/L Potassium (3.5-5.1) mmol/L Chloride (98-107) mmol/L Carbon Dioxide (21-32) mmol/L Anion Gap (3-11) BUN (6-23) mg/dl Creatinine (0.6-1.4) mg/dl Est Cr Clr Drug Dosing ml/min Est GFR ( Amer) ml/min Est GFR (Non-Af Amer) ml/min BUN/Creatinine Ratio (10-20) Glucose (70-99(Fasting)) mg/dl Estimat Average Glucose mg/dl Hemoglobin A1c (4.5-5.6) % Calcium (8.5-10.1) mg/dl Magnesium 2.0 (1.7-2.4) mg/dl Troponin I High Sens 47.0 H D (0-20) pg/ml Triglycerides (0-150) mg/dl Cholesterol (0-200) mg/dl LDL Cholesterol, Calc mg/dl VLDL Cholesterol, Calc (0-30) mg/dl HDL Cholesterol mg/dl Cholesterol/HDL Ratio (0-5) Resident Activity Tracking Resident Involvement: Resident Care Provided Care Provided: Adult Hospital Medicine
[2022-05-04 07:28] LABS: Partial Thromboplastin Ratio 2.2
[2022-05-04 07:36] LABS: Partial Thromboplastin Time 61.4 Seconds (21.0-31.0)
[2022-05-04 07:52] LABS: Chol HDL Ratio 3.9 (0-5)
[2022-05-04 08:05] LABS: Estimated Average Glucose 117 mg/dl; Hemoglobin A1C 5.7 % (4.5-5.6)
[2022-05-04] MEDS: dilTIAZem HCL 30 MG TAB PO SCH ×2 (08:21→16:40)
[2022-05-04] MEDS: FOLIC ACID 1 MG in SYRINGE 9.8 ML IV SCH (08:22)
[2022-05-04] MEDS: THIAMINE HCL 100 MG in SYRINGE 9 ML IV SCH (08:22)
--- NOTE | 2022-05-04 12:42 | XCELERA ---
[id number]
[2022-05-04] MEDS: HEPARIN SODIUM/DEXTROSE 25,000 UNITS/500 ML BAG IV SCH (14:11)
[2022-05-04] MEDS: NICOTINE 14 MG/24 HR PATCH TD SCH (15:16)
--- NOTE | 2022-05-04 17:00 | Cardiology Consultation ---
Date of Consultation May 04, 2022 Assessment & Plan (1) Atrial flutter: (2) Elevated troponin: (3) HFrEF (heart failure with reduced ejection fraction): (4) Mitral regurgitation: Plan 1. Atrial flutter: The patient was unaware of any arrhythmia or tachycardia. The chronicity of his atrial flutter is unknown. It is very possible that his symptoms were related atrial flutter and this started several days ago. His symptoms seem to be improved to some degree with resolution of the atrial flutter. Will get a better understanding about the correlation between his arrhythmia and symptoms when he is more active. Curiously, he converted to sinus rhythm on his own. He is certainly at risk of recurrence. I do not think he requires any prophylactic treatment such as antiarrhythmic therapy at this point. However, he does appear to be at increased risk for thromboembolic events based primarily on his age and reduced LV systolic function. I did recommend anticoagulation at this time. I think Xarelto would be a reasonable choice as compliance would be easier with single daily dosing. His renal function is certainly adequate for use of 20 mg daily. Eliquis 5 mg twice daily would be an alternative. In the long when he would likely be a good candidate for catheter based therapy in order to obviate the need for ongoing anticoagulation. 2. Cardiomyopathy: Unclear duration or etiology. Most common etiology for patient's in his demographic would be coronary artery disease. However, he did not endorse symptoms of angina or chest pain. This would make ischemic heart disease less likely. He has an extensive history of alcohol use and this could be alcohol mediated. He also presented with atrial flutter and rapid ventricular rate. This could been present for some time given his relative absence of symptoms and could certainly lead to reduced LV systolic function. We discussed several options for evaluation including coronary angiography tomorrow. However, he prefers to have a re-evaluation in the outpatient setting after staining from alcohol and maintaining sinus rhythm. I think this is reasonable given his absence of ischemic symptoms. He would benefit from standard therapy with beta-blockade. I will start him on metoprolol succinate. Can monitor his blood pressure and also start Entresto when the opportunity presents itself. His degree of LV dysfunction puts him in a category of patients who may benefit from a prophylactic ICD. However, given the new diagnosis will need to monitor his response to therapy and re-evaluate his LV function prior to consideration of device therapy. 3. Elevated troponin: Mild elevation. Undoubtedly related to demand ischemia in the setting of his cardiomyopathy and prolonged tachycardia. I do not believe this is event representative of an acute coronary syndrome. Well coronary angiography may be indicated for his cardiomyopathy at some point, do not believe is an urgent indication at this time. 4. Mitral regurgitation: Mild to moderate. This may account for some left atrial enlargement. I do not believe this accounts for any symptoms. 5. Ventricular tachycardia: On telemetry appear to have an episode of nonsustained VT. Does have a cardiomyopathy and certainly at risk for more malignant ventricular arrhythmias. Will start metoprolol as noted above. No prior history of significant dizziness or syncope. History of Present Illness Reason for Consultation: Atrial flutter, cardiomyopathy Requesting Physician: Lani Attending Physician: Sawyer Melara MD History of Present Illness The patient is a 66-year-old gentleman without a known history of cardiac disease who was referred to the emergency room by his primary care physician for tachycardia. Patient was noted to be in an atrial flutter. He had gone to his doctor over concerns of worsening breathing difficulty and coughing. He states the symptoms were present for several days. There were not associated with fevers or chills. No associated chest discomfort. No sense of palpitations or known elevated heart rates. He did not report associated dizziness or lightheadedness. No episodes of syncope. The patient was admitted to the hospital in actually converted to sinus rhythm in route from the emergency room. During my interview this afternoon the patient states that he has felt well. His breathing seems to be improved. He has not been coughing much recently. He has been ambulatory around his room without symptoms of dizziness or lightheadedness. Still no palpitations. No dyspnea with minimal activity. In general he states he is an active individual. He does not exercise regularly but does not appear to have limitations associated with most activity. He denied limiting dyspnea until recently. He has no history of exertional chest pain or chest pain at rest. He did not endorse symptoms orthopnea. No lower extremity edema. He has not had any devices at home which monitor his heart rate or blood pressure. Allergies Allergy/AdvReac Type Severity Reaction Status Date / Time bee venom protein (honey bee) Allergy Severe hives Verified 05/03/22 15:24 Penicillins Allergy Intermediate hives Verified 05/03/22 15:24 Home Medications Medication Instructions Recorded Confirmed Type ascorbic acid (vitamin C) 500 mg 500 mg PO DAILY 05/03/22 05/03/22 History chewable tablet (Vitamin C) cholecalciferol (vitamin D3) 25 25 mcg PO DAILY 05/03/22 05/03/22 History mcg (1,000 unit) chewable tablet (Vitamin D3) diclofenac sodium 75 mg 75 mg PO .DAILY WITH LUNCH 05/03/22 05/03/22 History tablet,delayed release magnesium 250 mg tablet 250 mg PO DAILY 05/03/22 05/03/22 History [id number] acid-vit 1 tab PO DAILY 05/03/22 05/03/22 History K-lycop 400 mcg-20 mcg-370 mcg tablet (Men's 50 Plus Daily Formula) omega 3-ctt-knc-fish oil 1,000 mg 1 cap PO DAILY 05/03/22 05/03/22 History (120 mg-180 mg) capsule (Fish Oil) zinc acetate 50 mg (zinc) capsule 50 mg PO DAILY 05/03/22 05/03/22 History Patient History Social History Smoking Status: Never smoker Tobacco Type: Smokeless Tobacco (Dip or Chew) Do You Dip or Chew Tobacco: Yes; Hx Alcohol Use: Yes Alcohol type: beer and hard liquor Hx Substance Use: No Preferred Language: [place] Communication Ability: Effective Bow Stapler Required: No Beliefs That Will Affect Care: None Current Living Situation: Spouse Other Information That Helps Us Care for You: No Feels Safe at Home: Yes Safety Concerns: Feels Safe At This Time Assistive Devices: None Assistive Devices Comment: partial dentures Review of Systems Review of Systems: Per HPI Physical Exam Physical Exam: The patient is alert and oriented. Mood and affect appeared normal. He answered all questions appropriately. HEENT: Pupils are equal and reactive to light and accommodation. Extraocular movements are intact. The sclerae are anicteric. Neuro: Cranial nerves intact Neck: Patient's neck is supple. He has palpable carotid pulses bilaterally without bruits on auscultation. There is no evidence of jugular venous distention. The thyroid is not enlarged. Lungs: Clear to auscultation bilaterally. He has good air movement without use of accessory muscles. No rales wheezes or rhonchi. Cardiac: Heart demonstrates a regular rate and rhythm. Normal S1 and S2. No murmurs on examination. Pulses: The patient has palpable radial pulses bilaterally that are equal in intensity Extremities: There was no evidence of hypoperfusion. There is no cyanosis or clubbing. There is no edema. Skin: I did not appreciate any rashes on examination today. Results & Data ([facility]) Vital Signs (Past 12 Hours) Vital Signs Temp Pulse Pulse Resp BP Pulse Ox O2 Del Method 05/04/22 16:01 36.8 C 93 H 19 147/85 H 94 Room Air 05/04/22 14:36 101 H 148/85 H 05/04/22 11:26 36.8 C 82 19 129/69 96 Room Air 05/04/22 09:51 89 05/04/22 07:36 37.0 C 82 19 115/66 96 Room Air Laboratory Results Abnormal Lab Results 05/03/22 05/03/22 05/03/22 17:12 18:41 21:19 WBC RBC Hgb Hct MCV MCH MCHC RDW Std Deviation RDW Coeff of Rahel Plt Count MPV Immature Gran % (Auto) Neut % (Auto) Lymph % (Auto) [place] % (Auto) Eos % (Auto) Baso % (Auto) Neut # (Auto) Lymph # (Auto) [place] # (Auto) Eos # (Auto) Baso # (Auto) Immature Gran # (Auto) APTT > 139.0 H* 69.2 H* PTT Ratio > 5.1 2.5 Sodium Potassium Chloride Carbon Dioxide Anion Gap BUN Creatinine Est Cr Clr Drug Dosing Est GFR ( Amer) Est GFR (Non-Af Amer) BUN/Creatinine Ratio Glucose Estimat Average Glucose Hemoglobin A1c Calcium Magnesium 2.0 Troponin I High Sens 47.0 H D Triglycerides Cholesterol LDL Cholesterol, Calc VLDL Cholesterol, Calc HDL Cholesterol Cholesterol/HDL Ratio 05/03/22 05/03/22 05/04/22 23:08 23:08 05:41 WBC RBC Hgb Hct MCV MCH MCHC RDW Std Deviation RDW Coeff of Rahel Plt Count MPV Immature Gran % (Auto) Neut % (Auto) Lymph % (Auto) [place] % (Auto) Eos % (Auto) Baso % (Auto) Neut # (Auto) Lymph # (Auto) [place] # (Auto) Eos # (Auto) Baso # (Auto) Immature Gran # (Auto) APTT 32.5 H 61.4 H* PTT Ratio 1.2 2.2 Sodium Potassium Chloride Carbon Dioxide Anion Gap BUN Creatinine Est Cr Clr Drug Dosing Est GFR ( Amer) Est GFR (Non-Af Amer) BUN/Creatinine Ratio Glucose Estimat Average Glucose Hemoglobin A1c Calcium Magnesium Troponin I High Sens 48.7 H Triglycerides Cholesterol LDL Cholesterol, Calc VLDL Cholesterol, Calc HDL Cholesterol Cholesterol/HDL Ratio 05/04/22 05/04/22 05/04/22 05:41 05:41 05:41 WBC 6.13 RBC 4.13 L Hgb 13.7 L Hct 40.0 L MCV 96.9 MCH 33.2 MCHC 34.3 RDW Std Deviation 44.1 RDW Coeff of Rahel 12.4 Plt Count 209 MPV 10.8 Immature Gran % (Auto) 0.2 Neut % (Auto) 55.2 Lymph % (Auto) 20.9 [place] % (Auto) 18.8 Eos % (Auto) 4.1 Baso % (Auto) 0.8 Neut # (Auto) 3.39 Lymph # (Auto) 1.28 [place] # (Auto) 1.15 H Eos # (Auto) 0.25 Baso # (Auto) 0.05 Immature Gran # (Auto) 0.01 APTT PTT Ratio Sodium 138 Potassium 3.8 Chloride 107 Carbon Dioxide 25 Anion Gap 6 BUN 15 Creatinine 0.80 Est Cr Clr Drug Dosing 101.9 Est GFR ( Amer) 107.1 Est GFR (Non-Af Amer) 92.4 BUN/Creatinine Ratio 18.8 Glucose 106 H Estimat Average Glucose Hemoglobin A1c Calcium 8.5 Magnesium 1.7 Troponin I High Sens 44.5 H Triglycerides Cholesterol LDL Cholesterol, Calc VLDL Cholesterol, Calc HDL Cholesterol Cholesterol/HDL Ratio 05/04/22 05/04/22 05:41 05:41 WBC RBC Hgb Hct MCV MCH MCHC RDW Std Deviation RDW Coeff of Rahel Plt Count MPV Immature Gran % (Auto) Neut % (Auto) Lymph % (Auto) [place] % (Auto) Eos % (Auto) Baso % (Auto) Neut # (Auto) Lymph # (Auto) [place] # (Auto) Eos # (Auto) Baso # (Auto) Immature Gran # (Auto) APTT PTT Ratio Sodium Potassium Chloride Carbon Dioxide Anion Gap BUN Creatinine Est Cr Clr Drug Dosing Est GFR ( Amer) Est GFR (Non-Af Amer) BUN/Creatinine Ratio Glucose Estimat Average Glucose 117 Hemoglobin A1c 5.7 H Calcium Magnesium Troponin I High Sens Triglycerides 79 Cholesterol 146 LDL Cholesterol, Calc 93 VLDL Cholesterol, Calc 16 HDL Cholesterol 37 Cholesterol/HDL Ratio 3.9 Diagnostic Findings Echocardiogram performed today revealed moderate to severely reduced LV systolic function with ejection fraction around 30%. Mild left atrial dilation. Mild to moderate mitral regurgitation. Chest x-ray obtained the time admission did not reveal any acute cardiopulmonary process. ECG Additional Comments: EKG obtained the time admission revealed atrial flutter and rapid ventricular response. PG Care Time/CCT Total # of Minutes Spent Total Time Spent with Patient: Total time spent is greater than 50% in coordination of care (as documented) at patient's floor/unit and/or counseling patient: Coding Level of Care Code 95933 Initial Inpt Care Lvl 3 Diagnoses Atrial flutter I48.92 Elevated troponin R77.8 HFrEF (heart failure with reduced ejection fraction) I50.20 Mitral regurgitation I34.0
[2022-05-04] MEDS ORDERED: RIVAROXABAN 20 MG TAB PO SCH (17:30)
[2022-05-04] MEDS: METOPROLOL SUCC 25MG EXT REL TAB PO SCH (18:23)
[2022-05-05 06:35] LABS: Partial Thromboplastin Ratio 1.2; Partial Thromboplastin Time 33.9 Seconds (21.0-31.0)
[2022-05-05 06:47] LABS: Calcium 8.9 mg/dl (8.5-10.1); Creatinine Clr Calc Pharmacy 91.2 ml/min; Est GFR (Non-African American) 88.9 ml/min; Potassium 3.8 mmol/L (3.5-5.1)
--- NOTE | 2022-05-05 06:58 | Hospitalist Progress Note ---
Date of Service May 05, 2022 Assessment & Plan (1) Atrial flutter: Plan: Six 6-year-old male with a past medical history of chew use, COPD/cigarette use, daily alcohol use who presents with 2-1 atrial flutter. Has had shortness of breath without chest pain for approximately 1 week, gradually worsening. Referred for PCP for tachycardia and found to be a new a flutter Atrial flutter Approximately 1 week of symptoms, no prior history of A. fib/a flutter/arr hythmia. ?Donato dysfunction in the setting of chronic alcohol use. Denies history of [place]/COPD/recent illness/hypertension/DM Chew use, denies cigarette use 2-1 atrial flutter, new on admission rates in the 150s Received 3X metoprolol IV with rate control to 1 [id number]. Subsequently given diltiazem x1 IV and put on diltiazem 30mg po tid. Appears to have converted to NSR after IV diltiazem dose. - hs-trops peaked 45 cont. heparin cardiology consulted - ARISTIDES-VASC score: 2; started xarelto - toprol 25mg daily HFrEF -no prior history, denies genetic predisposition -lipids wnl, A1c 5.7 -Echo: EF 30-35%, moderate to severe global hypokineses of left ventricle -cardiology consulted as above -xarelto, toprol as above -will consider ARB or entresto in am after monitoring BPs -may need future cath, however, will hope for LV function improvement with alcohol cessation and atrial flutter control Daily alcohol use 1 beer and 1 whiskey (glass) daily, cut back on beer slightly from 5 total per day on hollowing at the recommendation of PCP No recent alcohol free days CIPA protocol Patient denies any history of seizures, withdrawal, tremors. Reports he did go without alcohol when he was ill a year or 2 ago, no recent alcohol free days. Last drink evening prior to admission. Tobacco abuse -58 years of chewing tobacco use -gave nicotine patch DVT prophylaxis: xarelto Disposition: med tele Diet: heart healthy Code status: full code (2) Daily consumption of alcohol: (3) HFrEF (heart failure with reduced ejection fraction): (4) Tobacco abuse: Admission and Anticipated Discharge Date Admission Date: May 03, 2022 Subjective Seen at bedside this morning. Feeling well since coming up to floor from ED. Confirmed last drink was evening of 05/02. States he has one beer and a glass of whiskey daily. Otherwise diet healthy with home cooked meals. Denies chest pain, sob, abd pain, headache, N/V. Review of Systems Review of Systems: All systems reviewed & are unremarkable except as noted in HPI & below Physical Exam Physical Exam: General: AOx3. NAD. Cooperative. HEENT: NCAT. EOMI. Pulm: CTAB. -wheezes, -rales, -rhonchi. Symmetrical chest rise. No increased work of breathing. No respiratory distress. Cardiac: RRR, -mrg. Radial pulses intact and symmetrical. Abdominal: Nontender, nondistended, soft. BS present. Ext: No LE edema. Skin: Warm, dry Results & Data Results & Data ([facility]) Vital Signs (Past 12 Hours) Vital Signs Temp Pulse Pulse Resp BP Pulse Ox O2 Del Method 05/05/22 02:47 37.2 C 84 18 136/78 94 Room Air 05/05/22 00:00 105 H 05/05/22 00:03 37.1 C 05/04/22 22:38 37.9 C H 107 H 16 161/93 H 91 Room Air 05/04/22 19:00 36.8 C 99 H 18 127/78 96 Room Air
[2022-05-05] MEDS: METOPROLOL SUCC 25MG EXT REL TAB PO SCH (08:09)
[2022-05-05] MEDS: NICOTINE 14 MG/24 HR PATCH TD SCH (08:10)
[2022-05-05] MEDS: THIAMINE HCL 100 MG in SYRINGE 9 ML IV SCH (08:14)
[2022-05-05] MEDS: FOLIC ACID 1 MG in SYRINGE 9.8 ML IV SCH (08:14)
[2022-05-05] MEDS ORDERED: VALSARTAN/SACUBITRIL 26/24MG TAB PO SCH (13:35)
--- NOTE | 2022-05-05 14:07 | Discharge Summary ---
Date of Service May 05, 2022 Admission HPI Per Admitting Provider New afib. hx of etoh use daily for many use. Reilly is seen at the bedside Last weke started having a 'bad deep cough' with a cough in his central chest and a feeling of flutterin gin his chest Was loading conrete bags in the truck and felt like he strained his chest Last Monday was walking in the back yard, and had to stop due to shortness o breath. Denies any chest pain, no exertion CP, but was SoB with exertion. Daily alcohol use with no free ETOH days in the last year or two at least Denies other medical problems Meds: Has used tramadol for muscle aches fo ra few years. No other medications. Takes 1x tab a day Does have wheezing with cough in the last week. No baseline wheezing. Medical History: Reviewed Medications: Reviewed. PCN --> hives Surgical History: Reviewed Allergies: Reviewed Social History: Chew use x58 1 can per 2 days.No smoked tobacco. Drinks etoh daily. Cut back to one beer a day and 1-2 glass of whiskey in the evening. Cut back last appointment on after talking to his PCP. Prior 2-3 beers and 2 shots of whikey (5 a day total prior). Code Status: Full Code Principal Diagnosis atrial flutter, HFrEF Discharge Exam General: AOx3. NAD. Cooperative. HEENT: NCAT. EOMI. Pulm: CTAB. -wheezes, -rales, -rhonchi. Symmetrical chest rise. No increased work of breathing. No respiratory distress. Cardiac: RRR, -mrg. Radial pulses intact and symmetrical. Abdominal: Nontender, nondistended, soft. BS present. Ext: No LE edema. Skin: Warm, dry Discharge Data Allergies Allergy/AdvReac Type Severity Reaction Status Date / Time bee venom protein (honey bee) Allergy Severe hives Verified 05/03/22 15:24 Penicillins Allergy Intermediate hives Verified 05/03/22 15:24 Consultations 05/03/22 14:04 ED Decision to Admit Stat 05/04/22 13:33 Consult Cardiology Routine Ordered Studies Laboratory Results WBC 6.13 K/ul (4.8-10.8) 05/04/22 05:41 RBC 4.13 M/uL (4.63-6.08) L 05/04/22 05:41 Hgb 13.7 g/dl (14.0-18.0) L 05/04/22 05:41 Hct 40.0 % (40.1-51.0) L 05/04/22 05:41 MCV 96.9 fL (80.0-100.0) 05/04/22 05:41 MCH 33.2 pg (25.0-34.0) 05/04/22 05:41 MCHC 34.3 g/dL (32.0-36.0) 05/04/22 05:41 RDW Std Deviation 44.1 fL (36.4-46.3) 05/04/22 05:41 RDW Coeff of Rahel 12.4 % (11.5-14.5) 05/04/22 05:41 Plt Count 209 K/uL (130-400) 05/04/22 05:41 MPV 10.8 fL (9.4-12.4) 05/04/22 05:41 Immature Gran % (Auto) 0.2 % 05/04/22 05:41 Neut % (Auto) 55.2 % 05/04/22 05:41 Lymph % (Auto) 20.9 % 05/04/22 05:41 [place] % (Auto) 18.8 % 05/04/22 05:41 Eos % (Auto) 4.1 % 05/04/22 05:41 Baso % (Auto) 0.8 % 05/04/22 05:41 Neut # (Auto) 3.39 K/uL (1.4-6.5) 05/04/22 05:41 Lymph # (Auto) 1.28 K/uL (1.2-3.4) 05/04/22 05:41 [place] # (Auto) 1.15 K/uL (0.24-0.82) H 05/04/22 05:41 Eos # (Auto) 0.25 K/uL (0-0.50) 05/04/22 05:41 Baso # (Auto) 0.05 K/uL (0-0.2) 05/04/22 05:41 Immature Gran # (Auto) 0.01 K/uL (0.00-0.02) 05/04/22 05:41 APTT 33.9 Seconds (21.0-31.0) H 05/05/22 05:58 PTT Ratio 1.2 05/05/22 05:58 Sodium 137 mmol/L (136-145) 05/05/22 05:58 Potassium 3.8 mmol/L (3.5-5.1) 05/05/22 05:58 Chloride 106 mmol/L (98-107) 05/05/22 05:58 Carbon Dioxide 24 mmol/L (21-32) 05/05/22 05:58 Anion Gap 7 (3-11) 05/05/22 05:58 BUN 15 mg/dl (6-23) 05/05/22 05:58 Creatinine 0.88 mg/dl (0.6-1.4) 05/05/22 05:58 Est Cr Clr Drug Dosing 91.2 ml/min 05/05/22 05:58 Est GFR ( Amer) 103.0 ml/min 05/05/22 05:58 Est GFR (Non-Af Amer) 88.9 ml/min 05/05/22 05:58 BUN/Creatinine Ratio 17.0 (10-20) 05/05/22 05:58 Glucose 98 mg/dl (70-99(Fasting)) 05/05/22 05:58 Estimat Average Glucose 117 mg/dl 05/04/22 05:41 Hemoglobin A1c 5.7 % (4.5-5.6) H 05/04/22 05:41 Calcium 8.9 mg/dl (8.5-10.1) 05/05/22 05:58 Magnesium 1.7 mg/dl (1.7-2.4) 05/04/22 05:41 Total Bilirubin 0.6 mg/dl (0.2-1.0) 05/03/22 13:10 AST U/L (13-39) 05/03/22 13:10 AST 19 U/L (13-39) 05/03/22 13:10 ALT 21 U/L (7-52) 05/03/22 13:10 Alkaline Phosphatase 44 U/L (34-104) 05/03/22 13:10 Troponin I High Sens 44.5 pg/ml (0-20) H 05/04/22 05:41 Total Protein 7.4 gm/dl (6.0-8.3) 05/03/22 13:10 Albumin 4.0 gm/dl (3.4-5.0) 05/03/22 13:10 Globulin 3.4 gm/dl (2.5-4.0) 05/03/22 13:10 Albumin/Globulin Ratio 1.2 (0.9-2) 05/03/22 13:10 Triglycerides 79 mg/dl (0-150) 05/04/22 05:41 Cholesterol 146 mg/dl (0-200) 05/04/22 05:41 LDL Cholesterol, Calc 93 mg/dl 05/04/22 05:41 VLDL Cholesterol, Calc 16 mg/dl (0-30) 05/04/22 05:41 HDL Cholesterol 37 mg/dl 05/04/22 05:41 Cholesterol/HDL Ratio 3.9 (0-5) 05/04/22 05:41 Lipase 15 U/L (11-82) 05/03/22 13:10 SARS-CoV-2 (PCR) NEGATIVE (Negative) 05/03/22 13:21 Influenza Type A (PCR) Negative (Neg) 05/03/22 13:21 Influenza Type B (PCR) Negative (Neg) 05/03/22 13:21 RSV (RT-PCR) Negative (Neg) 05/03/22 13:21 Impressions Chest X-Ray 05/03/22 13:01 XR chest 1V portable HISTORY: 66 years-old Male Chest Pain . Acute chest pain COMPARISON: CT abdomen and pelvis 09/03/2016 TECHNIQUE: AP view of the chest FINDINGS: Cardiac silhouette is enlarged. No pneumothorax, pleural effusion, airspace consolidation or overt pulmonary edema. Bones of the chest appear grossly intact. Spondylitic spurring of the spine. IMPRESSION: No acute process. ACT 112: Negative or not required by law. The above report was generated using voice recognition software. It may contain grammatical, syntax or spelling errors. Electronically signed by: Maurice Navarro M.D. 05/03/2022 1:26 PM Hospital Course (1) Atrial flutter: Six 6-year-old male with a past medical history of chew use, COPD/cigarette use, daily alcohol use who presents with 2-1 atrial flutter. Has had shortness of breath without chest pain for approximately 1 week, gradually worsening. Referred for PCP for tachycardia and found to be a new a flutter Atrial flutter Approximately 1 week of symptoms, no prior history of A. fib/a flutter/arrhythmia. ?Donato dysfunction in the setting of chronic alcohol use. Denies history of [place]/COPD/recent illness/hypertension/DM Chew use, denies cigarette use 2-1 atrial flutter, new on admission rates in the 150s Received 3X metoprolol IV with rate control to 1 [id number]. Subsequently given diltiazem x1 IV and put on diltiazem 30mg po tid. Appears to have converted to NSR after IV diltiazem dose. - hs-trops peaked 45 heparin during stay cardiology consulted - ARISTIDES-VASC score: 2; cont. xarelto - metoprolol succinate 25mg daily -f/u cardiology, pcp HFrEF -no prior history, denies genetic predisposition -lipids wnl, A1c 5.7 -Echo: EF 30-35%, moderate to severe global hypokineses of left ventricle -cardiology consulted as above -xarelto, toprol as above -started entresto, cont. -may need future cath, however, will hope for LV function improvement with alcohol cessation and atrial flutter control -discussed alcohol cessation as below Daily alcohol use 1 beer and 1 whiskey (glass) daily, cut back on beer slightly from 5 total per day on hollowing at the recommendation of PCP No recent alcohol free days CIWA protocol Patient denies any history of seizures, withdrawal, tremors. Reports he did go without alcohol when he was ill a year or 2 ago, no recent alcohol free days. Last drink evening prior to admission. Tobacco abuse -58 years of chewing tobacco use -gave nicotine patch (2) Daily consumption of alcohol: (3) HFrEF (heart failure with reduced ejection fraction): (4) Tobacco abuse: Total Time Total Time Spent Total Time Spent (In Minutes): 30 Discharge Plan Discharge Items Patient Disposition: Home - Self-Care Reason For Visit: AFLUTTER RVR Discharge Diagnosis: atrial flutter, HFrEF Activity: Per Instructions section Non-emergency contact: Primary Care Provider and Health Services Rn Call non-emergency contact if: you have any medication questions and your symptoms worsen Follow-up/Referrals: Tyler Mistry MD [Physician] - 05/11/22 9:45 am Peter Shaffer [Primary Care Provider] - 05/06/22 12:00 pm Diet: Heart Healthy and Low Sodium (2gm) Addtl Attending Provider Instructions: You were admitted to the hospital for shortness of breath and being found with an abnormal heart rhythm by your primary care provider. It appears you were found to be in what we call atrial flutter. We treated you with heart rate lowering medications as he spontaneously converted back into a normal rhythm. We also performed an echocardiogram of your heart which did show that you have reduced heart functioning. Given that she lacks risk factors for diabetes and elevated cholesterol as well as no family history, it is quite possible your decreased heart functioning is secondary to your chronic alcohol use. Going forward we will place you on 3 new medications which will be listed below which will work to hopefully improve your heart functioning and also decrease your risk of stroke from the abnormal rhythm. You should follow-up with your primary care provider as well as cardiology you can get your care further. Most importantly you should stop drinking alcohol as this is the most likely culprit of your heart condition. You should also try to limit your salt intake to less than 2g/day as consumption above this level can put you at risk for an acute exacerbation of your heart failure. New Medications: Xarelto 20mg once daily Metoprolol 25mg once daily Entresto 1 tab twice a day (you will need to take your evening dose of picking up prescription) Pending Studies at Discharge: No Stand-Alone Forms: My [facility] WIB, Smoking Cessation Medications and DC Order Prescriptions: New Xarelto 20 mg Tablet 20 mg PO QDD Qty: 30 0RF metoprolol succinate 25 mg Tablet Extended Release 24 Hr 25 mg PO QAM Qty: 30 0RF Entresto 24-26 mg Tablet 1 tab PO BID Qty: 60 0RF Continued zinc acetate 50 mg (zinc) Capsule 50 mg PO DAILY ascorbic acid (vitamin C) [Vitamin C] 500 mg Tablet,Chewable 500 mg PO DAILY diclofenac sodium 75 mg tablet,delayed release (DR/EC) 75 mg PO .DAILY WITH LUNCH magnesium 250 mg Tablet 250 mg PO DAILY cholecalciferol (vitamin D3) [Vitamin D3] 25 mcg (1,000 unit) Tablet,Chewable 25 mcg PO DAILY omega 9-rpd-[id number]-fish oil [Fish Oil] 1,000 mg (120 mg-180 mg) Capsule 1 cap PO DAILY Men's 50 Plus Daily Formula 400-20-370 mcg Tablet 1 tab PO DAILY Discharge Orders: Discharge Order (Routine); Ordered 05/05/22 Ordered By: Chris Garibay Admission Data Admit Date/Time: 05/03/22 15:14 Attending Provider: Sawyer Melara Admit Provider: Luis Royal Primary Care Provider: Peter Shaffer Other Providers: Luis Royal ; Tyler Mistry Other Interventions: Discharge Summary Assessment (RN) Last Done: 05/05/22 15:06 Supervising Physician Co-Signing Physician Notes Attending attestation Pt seen and examined in concert with Dr. Garibay. In agreement with the documented findings as noted in the resident documentation with any exceptions or additions as noted here. Resting comfortably in bed without acute complaint at time of evaluation. Reviewed interventions including need for follow up, further testing and lifestyle modifications in support of prevention of progression. VS, nursing notes, imaging and labs reviewed. On examination, S1/S2 nl RRR no MCG. CTAB. Abd NT/ND BS+ve Atrial flutter, asymptomatic - [id number] of 2 - tolerating metoprolol and rivaoxaban, continue Cardiomyopathy, unknown etiology, demand ischemia - cardiology consult - started entresto on discharge, continue metoprolol Tobacco use, oral - counseled re: cessation, provided nicotine patch in hospital Routine alcohol use - 4 drinks per day reported. Strongly counseled on the likely contributions of same and the importance of cessation. Else see resident documentation as noted. Total attending physician time spent with this patient's care on the day of discharge: 40 minutes. Resident Activity Tracking Resident Involvement: Resident Care Provided Care Provided: Adult Hospital Medicine
== END 2022-05-05 15:43 | disposition home or self-care (01) ==
LOC: ED 12:53 → SUATTDRO 15:14 → INTOOBSV 15:14 → EDINP 15:14 → 4W 20:23
DX: F17.220 Nicotine dependence, chewing tobacco, uncomplicated; I48.92 Unspecified atrial flutter; F10.90 Alcohol use, unspecified, uncomplicated; Z91.030 Bee allergy status; Z88.0 Allergy status to penicillin; Z79.01 Long term (current) use of anticoagulants